=== PATIENT | male | born 1970 | race Caucasian/White ===

== ENCOUNTER 2025-03-23 06:27 | Day surgery (SDC) | payer BC, SELFPAY | END 2025-03-23 12:01 | disposition home or self-care (01) | LOC: GI 06:27 | PROVIDERS: ATTENDING PHYSICIAN Internal Medicine Gastroenterology | DX: Z12.11 Encounter for screening for malignant neoplasm of colon (principal); K63.89 Other specified diseases of intestine; K57.30 Diverticulosis of large intestine without perforation or abscess without bleeding; Z80.0 Family history of malignant neoplasm of digestive organs; Z98.0 Intestinal bypass and anastomosis status | CPT/HCPCS: 45385; 88305 ==

== ENCOUNTER → 2025-05-04 12:21 | Outpatient (REF) | payer BC, SELFPAY | LOC: DHSLP 12:21 | PROVIDERS: ATTENDING PHYSICIAN Family Medicine | DX: G47.19 Other hypersomnia (principal); R06.83 Snoring | CPT/HCPCS: 95800 ==